=== PATIENT | female | born 1970 | race Caucasian/White ===

== ENCOUNTER 2023-01-20 06:29 | Inpatient (IN) ==
[2023-01-18 18:49] LABS: Partial Thromboplastin Time 26.7 sec (20.0-37.0)
[2023-01-18 18:50] LABS: ALT/SGPT 20 U/L (<40); AST/SGOT 29 U/L (<32); Albumin 4.1 gm/dL (3.2-5.2); Albumin/Globulin Ratio 1.6 (1.0-2.3); Alkaline Phosphatase 56 U/L (39-117); Bilirubin,Total 0.3 mg/dL (0.1-1.0); Blood Urea Nitrogen 6 mg/dL (6-20); Calcium 8.8 mg/dL (8.6-10.4); Carbon Dioxide 28 mmol/L (22-30); Chloride 104 mmol/L (96-108); Globulin 2.5 gm/dL (2.2-3.7); Glomerular Filtration Rate 85; Glucose 74 mg/dL (70-105); INR 0.9 (0.9-1.1); Prothrombin Time 12.2 sec (11.9-14.5)
[2023-01-18 18:52] LABS: Basophils # (Auto) 0.05 K/mcL (0.00-0.30); Basophils % (Auto) 1.2 % (0.0-2.0); Eosinophils # (Auto) 0.05 K/mcL (0.00-0.70); Eosinophils % (Auto) 1.2 % (0.0-7.0); Hematocrit 37.6 % (34.1-44.9); Hemoglobin 11.8 g/dL (11.2-15.7); Lymphocytes # (Auto) 1.46 K/mcL (1.50-4.80); Lymphocytes % (Auto) 34.8 % (15.5-49.0); Mean Corpuscular HGB Conc 31.4 g/dL (31.0-36.0); Mean Platelet Volume 9.6 fL (8.8-12.5); Monocytes # (Auto) 0.35 K/mcL (0.10-0.90); Monocytes % (Auto) 8.4 % (1.0-12.0); Neutrophils % (Auto) 54.2 % (38.0-78.0); Platelet Count 227 K/mcL (140-440); RBC 3.65 M/mcL (3.59-5.38); Red Cell Distribution Width 13.2 % (11.5-14.5); WBC 4.2 K/mcL (4.5-11.0)
[~2023-01-20 06:29] MED LIST: ceFAZolin 2 GM in DEXTROSE 5% IN WATER 50 ML IV SCH
[2023-01-20] MEDS ORDERED: ROPIVACAINE HCL/PF 20 ML VIAL IJ ONE (07:34)
[2023-01-20] MEDS ORDERED: PROPOFOL 200 MG/20 ML VIAL IV ONE (07:34)
[2023-01-20] MEDS ORDERED: ROCURONIUM 10 MG/ML ML IV ONE (07:34)
[2023-01-20] MEDS ORDERED: HYDROmorphone 1 MG/ML SYRINGE ONE (07:34)
[2023-01-20] MEDS ORDERED: DEXAMETHASONE 10 MG/ML VIAL ONE (07:34)
[2023-01-20] MEDS ORDERED: fentaNYL 100 MCG/2 ML VIAL IV ONE (07:34)
[2023-01-20] MEDS ORDERED: LIDOCAINE HCL/PF 100 MG/5 ML SYRINGE IV ONE (07:34)
[2023-01-20] MEDS ORDERED: MIDAZOLAM 5 MG/5 ML VIAL ONE (07:34)
[2023-01-20] MEDS ORDERED: SUGAMMADEX SODIUM 200 MG/2 ML VIAL IV ONE (07:34)
[2023-01-20] MEDS ORDERED: ONDANSETRON 4 MG/2 ML VIAL ONE (07:34)
[2023-01-20] MEDS ORDERED: ONDANSETRON 4 MG/2 ML VIAL IV PRN (10:49)
[2023-01-20] MEDS ORDERED: HYDROmorphone 0.5 MG/0.5 ML SYRINGE IV PRN ×2 (10:49→11:53)
[2023-01-20] MEDS ORDERED: NALOXONE HCL 0.4 MG/ML VIAL IV PRN (10:49)
[2023-01-20] MEDS ORDERED: PROMETHAZINE 25 MG/ML VIAL IV PRN (10:49)
[2023-01-20] MEDS ORDERED: MEPERIDINE 25 MG/ML VIAL IV PRN (10:49)
[2023-01-20] MEDS ORDERED: METHOCARBAMOL 1,000 MG/10 ML VIAL IV PRN (10:49)
[2023-01-20] MEDS ORDERED: fentaNYL 100 MCG/2 ML VIAL IV PRN (10:49)
[2023-01-20] MEDS ORDERED: LACTATED RINGERS 250 ML IV PRN (10:49)
[2023-01-20] MEDS ORDERED: IPRATROPIUM/ALBUTEROL 3 ML AMPUL.NEB NEB PRN (10:49)
[2023-01-20] MEDS: 0.9 % SODIUM CHLORIDE 10 ML SYRINGE IV SCH ×2 (13:33→23:13)
[2023-01-20] MEDS: 0.9 % SODIUM CHLORIDE 1,000 ML IV SCH ×2 (13:33→21:36)
[2023-01-20] MEDS: ONDANSETRON 4 MG/2 ML VIAL IV PRN (13:33)
[2023-01-20] MEDS ORDERED: HYDROmorphone 0.5 MG/0.5 ML SYRINGE IV ONE (14:54)
[2023-01-20] MEDS ORDERED: HYDROmorphone 0.5 MG/0.5 ML SYRINGE ONE (15:02)
[2023-01-20] MEDS ORDERED: PROMETHAZINE 25 MG/ML VIAL ONE (15:22)
[2023-01-20] MEDS: PROMETHAZINE 25 MG/ML VIAL IV PRN (15:28)
[2023-01-20] MEDS: ACETAMINOPHEN 1,000 MG/100 ML BAG IV SCH (15:33)
[2023-01-20] MEDS: HYDROmorphone 0.5 MG/0.5 ML SYRINGE IV PRN ×3 (16:32→21:58)
[2023-01-20] MEDS ORDERED: LORazepam 2 MG/ML VIAL IV ONE (17:17)
[2023-01-20] MEDS ORDERED: LORazepam 2 MG/ML VIAL ONE (17:24)
[2023-01-20] MEDS: fentaNYL 75 MCG PATCH TOPICAL SCH (20:13)
[2023-01-20] MEDS: ACETAMINOPHEN 650 MG SUPP.RECT PR PRN (20:15)
[2023-01-21] MEDS: HYDROmorphone 0.5 MG/0.5 ML SYRINGE IV PRN ×10 (00:15→23:50)
[2023-01-21] MEDS: ACETAMINOPHEN 1,000 MG/100 ML BAG IV SCH (01:50)
[2023-01-21] MEDS: ONDANSETRON 4 MG/2 ML VIAL IV PRN ×2 (05:47→15:11)
[2023-01-21] MEDS: METHOCARBAMOL 1,000 MG/10 ML VIAL IV PRN ×4 (05:47→22:19)
[2023-01-21] MEDS: 0.9 % SODIUM CHLORIDE 10 ML SYRINGE IV SCH ×3 (06:01→20:08)
[2023-01-21 06:45] LABS: Basophils # (Auto) 0.02 K/mcL (0.00-0.30); Basophils % (Auto) 0.2 % (0.0-2.0); Eosinophils # (Auto) 0.01 K/mcL (0.00-0.70); Eosinophils % (Auto) 0.1 % (0.0-7.0); Hematocrit 31.4 % (34.1-44.9); Hemoglobin 10.6 g/dL (11.2-15.7); Lymphocytes # (Auto) 1.14 K/mcL (1.50-4.80); Lymphocytes % (Auto) 9.8 % (15.5-49.0); Mean Cell Volume 98.1 fL (80.0-100.0); Mean Corpuscular HGB Conc 33.8 g/dL (31.0-36.0); Mean Platelet Volume 9.7 fL (8.8-12.5); Monocytes # (Auto) 0.65 K/mcL (0.10-0.90); Monocytes % (Auto) 5.6 % (1.0-12.0); Neutrophils % (Auto) 83.8 % (38.0-78.0); Platelet Count 192 K/mcL (140-440); Red Cell Distribution Width 13.5 % (11.5-14.5); WBC 11.6 K/mcL (4.5-11.0)
[2023-01-21 07:03] LABS: ALT/SGPT 41 U/L (<40); AST/SGOT 53 U/L (<32); Albumin 3.3 gm/dL (3.2-5.2); Albumin/Globulin Ratio 1.3 (1.0-2.3); Alkaline Phosphatase 54 U/L (39-117); Bilirubin,Direct < 0.2 mg/dL (0-0.3); Bilirubin,Total 0.5 mg/dL (0.1-1.0); Blood Urea Nitrogen 8 mg/dL (6-20); Calcium 7.8 mg/dL (8.6-10.4); Carbon Dioxide 21 mmol/L (22-30); Chloride 106 mmol/L (96-108); Globulin 2.5 gm/dL (2.2-3.7); Glomerular Filtration Rate 112; Glucose 126 mg/dL (70-105); Lactate Dehydrogenase 263 U/L (135-225); Phosphorous 1.3 mg/dL (2.5-4.5); Triglycerides 68 mg/dL (<150); Uric Acid 2.7 mg/dL (2.5-8.0)
[2023-01-21] MEDS: 0.9 % SODIUM CHLORIDE 1,000 ML IV SCH ×5 (07:29→23:42)
[2023-01-21] MEDS: PROMETHAZINE 25 MG/ML VIAL IV PRN ×2 (07:55→23:51)
[2023-01-21] MEDS ORDERED: LORazepam 2 MG/ML VIAL IV SCH (13:20)
[2023-01-21] MEDS ORDERED: METHOCARBAMOL 1,000 MG/10 ML VIAL IV SCH (13:30)
[2023-01-21] MEDS ORDERED: MAGNESIUM SULFATE 4 GM/100 ML BAG IV ONE (14:02)
[2023-01-21] MEDS: LORazepam 2 MG/ML VIAL IV PRN ×2 (15:12→19:41)
[2023-01-21] MEDS: POTASSIUM PHOSPHATE 40 MEQ in DEXTROSE 5% IN WATER 500 ML IV SCH ×2 (18:39→22:35)
[2023-01-22] MEDS: LORazepam 2 MG/ML VIAL IV PRN ×3 (02:01→18:37)
[2023-01-22] MEDS: HYDROmorphone 0.5 MG/0.5 ML SYRINGE IV PRN ×10 (02:02→23:10)
[2023-01-22] MEDS: METHOCARBAMOL 1,000 MG/10 ML VIAL IV PRN ×4 (04:10→20:59)
[2023-01-22] MEDS: 0.9 % SODIUM CHLORIDE 1,000 ML IV SCH ×4 (04:34→23:11)
[2023-01-22] MEDS: ACETAMINOPHEN 1,000 MG/100 ML BAG IV SCH ×2 (04:35→20:25)
[2023-01-22] MEDS: PROMETHAZINE 25 MG/ML VIAL IV PRN ×3 (05:59→23:10)
[2023-01-22] MEDS: 0.9 % SODIUM CHLORIDE 10 ML SYRINGE IV SCH ×3 (06:02→23:10)
[2023-01-22] MEDS ORDERED: LIDOCAINE PATCH TOPICAL ONE (13:56)
[2023-01-23] MEDS: LORazepam 2 MG/ML VIAL IV PRN ×4 (01:05→21:21)
[2023-01-23] MEDS: HYDROmorphone 0.5 MG/0.5 ML SYRINGE IV PRN ×8 (01:05→21:21)
[2023-01-23] MEDS: METHOCARBAMOL 1,000 MG/10 ML VIAL IV PRN ×3 (03:29→18:59)
[2023-01-23] MEDS: 0.9 % SODIUM CHLORIDE 1,000 ML IV SCH ×4 (05:17→21:21)
[2023-01-23] MEDS: 0.9 % SODIUM CHLORIDE 10 ML SYRINGE IV SCH ×2 (06:08→12:07)
[2023-01-23 06:40] LABS: Basophils # (Auto) 0.04 K/mcL (0.00-0.30); Basophils % (Auto) 0.6 % (0.0-2.0); Eosinophils # (Auto) 0.15 K/mcL (0.00-0.70); Eosinophils % (Auto) 2.2 % (0.0-7.0); Hematocrit 30.3 % (34.1-44.9); Hemoglobin 9.7 g/dL (11.2-15.7); Lymphocytes # (Auto) 0.79 K/mcL (1.50-4.80); Lymphocytes % (Auto) 11.8 % (15.5-49.0); Monocytes # (Auto) 0.46 K/mcL (0.10-0.90); Monocytes % (Auto) 6.9 % (1.0-12.0); Neutrophils % (Auto) 78.1 % (38.0-78.0); Platelet Count 159 K/mcL (140-440); RBC 2.97 M/mcL (3.59-5.38); Red Cell Distribution Width 13.8 % (11.5-14.5); WBC 6.7 K/mcL (4.5-11.0)
[2023-01-23 07:01] LABS: ALT/SGPT 23 U/L (<40); AST/SGOT 24 U/L (<32); Albumin 3.2 gm/dL (3.2-5.2); Albumin/Globulin Ratio 1.2 (1.0-2.3); Alkaline Phosphatase 53 U/L (39-117); Bilirubin,Direct < 0.2 mg/dL (0-0.3); Bilirubin,Total 0.5 mg/dL (0.1-1.0); Blood Urea Nitrogen 5 mg/dL (6-20); Calcium 6.9 mg/dL (8.6-10.4); Carbon Dioxide 17 mmol/L (22-30); Chloride 110 mmol/L (96-108); Globulin 2.6 gm/dL (2.2-3.7); Glomerular Filtration Rate 120; Glucose 73 mg/dL (70-105); Lactate Dehydrogenase 250 U/L (135-225); Phosphorous 1.2 mg/dL (2.5-4.5); Triglycerides 105 mg/dL (<150); Uric Acid 2.6 mg/dL (2.5-8.0)
[2023-01-23] MEDS: PROMETHAZINE 25 MG/ML VIAL IV PRN ×2 (07:39→17:21)
[2023-01-23] MEDS: LIDOCAINE PATCH TOPICAL SCH (09:43)
[2023-01-23] MEDS: POTASSIUM PHOSPHATE 40 MEQ in DEXTROSE 5% IN WATER 500 ML IV SCH ×2 (14:13→22:08)
[2023-01-23] MEDS: fentaNYL 75 MCG PATCH TOPICAL SCH (17:22)
[2023-01-23] MEDS: ACETAMINOPHEN 1,000 MG/100 ML BAG IV SCH (21:24)
[2023-01-24] MEDS: HYDROmorphone 0.5 MG/0.5 ML SYRINGE IV PRN ×9 (00:19→22:50)
[2023-01-24] MEDS: PROMETHAZINE 25 MG/ML VIAL IV PRN ×4 (00:19→15:28)
[2023-01-24] MEDS: 0.9 % SODIUM CHLORIDE 10 ML SYRINGE IV SCH ×4 (00:19→23:34)
[2023-01-24] MEDS: METHOCARBAMOL 1,000 MG/10 ML VIAL IV PRN ×3 (02:19→21:10)
[2023-01-24] MEDS: LORazepam 2 MG/ML VIAL IV PRN ×2 (04:23→22:51)
[2023-01-24] MEDS: 0.9 % SODIUM CHLORIDE 1,000 ML IV SCH ×3 (04:23→19:35)
[2023-01-24 06:50] LABS: Basophils # (Auto) 0.03 K/mcL (0.00-0.30); Basophils % (Auto) 0.6 % (0.0-2.0); Eosinophils # (Auto) 0.17 K/mcL (0.00-0.70); Eosinophils % (Auto) 3.6 % (0.0-7.0); Hematocrit 29.1 % (34.1-44.9); Hemoglobin 9.4 g/dL (11.2-15.7); Lymphocytes # (Auto) 0.85 K/mcL (1.50-4.80); Lymphocytes % (Auto) 18.2 % (15.5-49.0); Mean Corpuscular HGB Conc 32.3 g/dL (31.0-36.0); Mean Platelet Volume 9.6 fL (8.8-12.5); Monocytes # (Auto) 0.46 K/mcL (0.10-0.90); Monocytes % (Auto) 9.8 % (1.0-12.0); Neutrophils % (Auto) 67.4 % (38.0-78.0); Platelet Count 174 K/mcL (140-440); RBC 2.94 M/mcL (3.59-5.38); Red Cell Distribution Width 13.3 % (11.5-14.5); WBC 4.7 K/mcL (4.5-11.0)
[2023-01-24 07:07] LABS: ALT/SGPT 17 U/L (<40); AST/SGOT 18 U/L (<32); Albumin 3.2 gm/dL (3.2-5.2); Albumin/Globulin Ratio 1.1 (1.0-2.3); Alkaline Phosphatase 51 U/L (39-117); Bilirubin,Direct < 0.2 mg/dL (0-0.3); Bilirubin,Total 0.5 mg/dL (0.1-1.0); Blood Urea Nitrogen 4 mg/dL (6-20); Calcium 6.6 mg/dL (8.6-10.4); Carbon Dioxide 20 mmol/L (22-30); Chloride 108 mmol/L (96-108); Globulin 2.8 gm/dL (2.2-3.7); Glomerular Filtration Rate 112; Glucose 80 mg/dL (70-105); Lactate Dehydrogenase 249 U/L (135-225); Phosphorous 2.5 mg/dL (2.5-4.5); Triglycerides 115 mg/dL (<150); Uric Acid 3.2 mg/dL (2.5-8.0)
[2023-01-24] MEDS: LIDOCAINE PATCH TOPICAL SCH (11:19)
[2023-01-24] MEDS: ACETAMINOPHEN 1,000 MG/100 ML BAG IV SCH (22:51)
[2023-01-25] MEDS: PROMETHAZINE 25 MG/ML VIAL IV PRN ×4 (01:40→23:12)
[2023-01-25] MEDS: HYDROmorphone 0.5 MG/0.5 ML SYRINGE IV PRN ×6 (01:41→17:54)
[2023-01-25] MEDS: LORazepam 2 MG/ML VIAL IV PRN ×2 (04:03→23:21)
[2023-01-25] MEDS: 0.9 % SODIUM CHLORIDE 1,000 ML IV SCH ×3 (04:59→21:12)
[2023-01-25] MEDS: 0.9 % SODIUM CHLORIDE 10 ML SYRINGE IV SCH ×2 (05:14→14:43)
[2023-01-25 06:54] LABS: Basophils # (Auto) 0.05 K/mcL (0.00-0.30); Basophils % (Auto) 0.8 % (0.0-2.0); Eosinophils # (Auto) 0.16 K/mcL (0.00-0.70); Eosinophils % (Auto) 2.7 % (0.0-7.0); Hematocrit 31.3 % (34.1-44.9); Hemoglobin 9.7 g/dL (11.2-15.7); Lymphocytes # (Auto) 1.08 K/mcL (1.50-4.80); Lymphocytes % (Auto) 18.3 % (15.5-49.0); Mean Platelet Volume 9.6 fL (8.8-12.5); Monocytes # (Auto) 0.52 K/mcL (0.10-0.90); Monocytes % (Auto) 8.8 % (1.0-12.0); Neutrophils % (Auto) 69.2 % (38.0-78.0); Platelet Count 156 K/mcL (140-440); RBC 2.98 M/mcL (3.59-5.38); Red Cell Distribution Width 13.7 % (11.5-14.5); WBC 5.9 K/mcL (4.5-11.0)
[2023-01-25 07:15] LABS: ALT/SGPT 15 U/L (<40); AST/SGOT 18 U/L (<32); Albumin 3.3 gm/dL (3.2-5.2); Albumin/Globulin Ratio 1.2 (1.0-2.3); Alkaline Phosphatase 51 U/L (39-117); Bilirubin,Direct < 0.2 mg/dL (0-0.3); Bilirubin,Total 0.4 mg/dL (0.1-1.0); Blood Urea Nitrogen 2 mg/dL (6-20); Calcium 6.2 mg/dL (8.6-10.4); Carbon Dioxide 17 mmol/L (22-30); Chloride 108 mmol/L (96-108); Globulin 2.8 gm/dL (2.2-3.7); Glomerular Filtration Rate 112; Glucose 81 mg/dL (70-105); Lactate Dehydrogenase 256 U/L (135-225); Phosphorous 1.8 mg/dL (2.5-4.5); Triglycerides 125 mg/dL (<150); Uric Acid 3.7 mg/dL (2.5-8.0)
[2023-01-25] MEDS: METHOCARBAMOL 1,000 MG/10 ML VIAL IV PRN ×3 (10:08→23:36)
[2023-01-25] MEDS: LIDOCAINE PATCH TOPICAL SCH (10:10)
[2023-01-25 14:52] LABS: ALT/SGPT 16 U/L (<40); AST/SGOT 21 U/L (<32); Albumin 3.6 gm/dL (3.2-5.2); Albumin/Globulin Ratio 1.6 (1.0-2.3); Alkaline Phosphatase 55 U/L (39-117); Bilirubin,Direct < 0.2 mg/dL (0-0.3); Bilirubin,Total 0.4 mg/dL (0.1-1.0); Blood Urea Nitrogen 3 mg/dL (6-20); Calcium 6.6 mg/dL (8.6-10.4); Carbon Dioxide 16 mmol/L (22-30); Chloride 105 mmol/L (96-108); Globulin 2.3 gm/dL (2.2-3.7); Glomerular Filtration Rate 120; Glucose 65 mg/dL (70-105); Lactate Dehydrogenase 272 U/L (135-225); Phosphorous 1.5 mg/dL (2.5-4.5); Prealbumin 13.8 mg/dL (20.0-40.0); Triglycerides 104 mg/dL (<150)
[2023-01-25] MEDS: POTASSIUM PHOSPHATE 40 MEQ in DEXTROSE 5% IN WATER 500 ML IV SCH ×2 (14:56→21:55)
[2023-01-25] MEDS: ACETAMINOPHEN 1,000 MG/100 ML BAG IV SCH (21:07)
[2023-01-25] MEDS: CHLORHEXIDINE GLUCONATE 15 ML UDC SWABMOUTH SCH (21:12)
[2023-01-26] MEDS: HYDROmorphone 0.5 MG/0.5 ML SYRINGE IV PRN ×2 (00:05→20:04)
[2023-01-26] MEDS: 0.9 % SODIUM CHLORIDE 10 ML SYRINGE IV SCH ×4 (04:34→20:20)
[2023-01-26] MEDS: ONDANSETRON 4 MG/2 ML VIAL IV PRN (04:34)
[2023-01-26] MEDS: 0.9 % SODIUM CHLORIDE 1,000 ML IV SCH (04:40)
[2023-01-26] MEDS: ACETAMINOPHEN 650 MG SUPP.RECT PR PRN ×2 (07:13→14:17)
[2023-01-26 08:01] LABS: ALT/SGPT 14 U/L (<40); AST/SGOT 23 U/L (<32); Albumin 3.8 gm/dL (3.2-5.2); Albumin/Globulin Ratio 1.3 (1.0-2.3); Alkaline Phosphatase 59 U/L (39-117); Bilirubin,Direct < 0.2 mg/dL (0-0.3); Bilirubin,Total 0.5 mg/dL (0.1-1.0); Blood Urea Nitrogen 2 mg/dL (6-20); Calcium 7.1 mg/dL (8.6-10.4); Carbon Dioxide 18 mmol/L (22-30); Chloride 102 mmol/L (96-108); Globulin 2.9 gm/dL (2.2-3.7); Glomerular Filtration Rate 120; Glucose 112 mg/dL (70-105); Lactate Dehydrogenase 335 U/L (135-225); Phosphorous 2.4 mg/dL (2.5-4.5); Triglycerides 106 mg/dL (<150); Uric Acid 3.5 mg/dL (2.5-8.0)
[2023-01-26 08:27] LABS: Basophils # (Auto) 0.02 K/mcL (0.00-0.30); Basophils % (Auto) 0.3 % (0.0-2.0); Eosinophils # (Auto) 0.14 K/mcL (0.00-0.70); Eosinophils % (Auto) 1.9 % (0.0-7.0); Hematocrit 33.5 % (34.1-44.9); Hemoglobin 10.8 g/dL (11.2-15.7); Lymphocytes # (Auto) 0.63 K/mcL (1.50-4.80); Lymphocytes % (Auto) 8.8 % (15.5-49.0); Mean Cell Volume 101.5 fL (80.0-100.0); Mean Corpuscular HGB Conc 32.2 g/dL (31.0-36.0); Mean Platelet Volume 9.6 fL (8.8-12.5); Monocytes % (Auto) 9.7 % (1.0-12.0); Platelet Count 213 K/mcL (140-440); Red Cell Distribution Width 13.5 % (11.5-14.5); WBC 7.2 K/mcL (4.5-11.0)
[2023-01-26] MEDS ORDERED: SIMETHICONE 80 MG TAB.CHEW CHEWED SCH (09:31)
[2023-01-26] MEDS ORDERED: LORazepam 2 MG/ML VIAL ONE ×2 (10:47→11:03)
[2023-01-26] MEDS ORDERED: LORazepam 2 MG/ML VIAL IV STA (10:58)
[2023-01-26] MEDS ORDERED: LORazepam 2 MG/ML ORAL.SOL PO ONE (11:00)
[2023-01-26] MEDS ORDERED: LORazepam 2 MG/ML VIAL IV ONE (11:03)
[2023-01-26] MEDS ORDERED: MAGNESIUM SULFATE 2 GM/50 ML BAG IV SCH (11:04)
[2023-01-26] MEDS ORDERED: DIAZEPAM 10 MG/2 ML SYRINGE IV SCH (11:08)
[2023-01-26] MEDS ORDERED: levETIRAcetam 500 MG in 0.9 % SODIUM CHLORIDE 100 ML IV SCH (11:15)
[2023-01-26] MEDS ORDERED: LORazepam 2 MG/ML ORAL.SOL ONE (11:22)
[2023-01-26] MEDS: PROMETHAZINE 25 MG/ML VIAL IV PRN (11:23)
[2023-01-26] MEDS: CHLORHEXIDINE GLUCONATE 15 ML UDC SWABMOUTH SCH ×2 (11:52→20:19)
[2023-01-26] MEDS: PANTOPRAZOLE 40 MG VIAL IV SCH ×2 (14:50→14:52)
[2023-01-26] MEDS: LIDOCAINE PATCH TOPICAL SCH (16:19)
[2023-01-26] MEDS: fentaNYL 75 MCG PATCH TOPICAL SCH (17:38)
[2023-01-26] MEDS: LORazepam 2 MG/ML VIAL IV PRN (20:16)
[2023-01-26] MEDS: FLUTICASONE HFA 110MCG INHALER INH SCH (20:36)
[2023-01-26] MEDS: levETIRAcetam 500 MG in 0.9 % SODIUM CHLORIDE 100 ML IV SCH (20:43)
[2023-01-27] MEDS: 0.9 % SODIUM CHLORIDE 1,000 ML IV SCH ×4 (00:19→20:03)
[2023-01-27] MEDS: 0.9 % SODIUM CHLORIDE 10 ML SYRINGE IV SCH ×4 (05:11→23:40)
[2023-01-27] MEDS: HYDROmorphone 0.5 MG/0.5 ML SYRINGE IV PRN ×6 (05:52→23:37)
[2023-01-27] MEDS: ONDANSETRON 4 MG/2 ML VIAL IV PRN ×2 (06:50→20:11)
[2023-01-27 06:52] LABS: Basophils # (Auto) 0.03 K/mcL (0.00-0.30); Basophils % (Auto) 0.5 % (0.0-2.0); Eosinophils # (Auto) 0.11 K/mcL (0.00-0.70); Eosinophils % (Auto) 1.8 % (0.0-7.0); Hematocrit 28.9 % (34.1-44.9); Hemoglobin 9.5 g/dL (11.2-15.7); Lymphocytes # (Auto) 0.53 K/mcL (1.50-4.80); Lymphocytes % (Auto) 8.6 % (15.5-49.0); Mean Cell Volume 98.6 fL (80.0-100.0); Mean Corpuscular HGB Conc 32.9 g/dL (31.0-36.0); Mean Platelet Volume 9.8 fL (8.8-12.5); Monocytes # (Auto) 0.55 K/mcL (0.10-0.90); Monocytes % (Auto) 8.9 % (1.0-12.0); Neutrophils % (Auto) 79.7 % (38.0-78.0); Platelet Count 234 K/mcL (140-440); RBC 2.93 M/mcL (3.59-5.38); Red Cell Distribution Width 13.6 % (11.5-14.5); WBC 6.2 K/mcL (4.5-11.0)
[2023-01-27] MEDS: ACETAMINOPHEN 1,000 MG/100 ML BAG IV SCH (07:06)
[2023-01-27 07:15] LABS: ALT/SGPT 14 U/L (<40); AST/SGOT 17 U/L (<32); Albumin 3.5 gm/dL (3.2-5.2); Albumin/Globulin Ratio 1.3 (1.0-2.3); Alkaline Phosphatase 51 U/L (39-117); Bilirubin,Direct < 0.2 mg/dL (0-0.3); Bilirubin,Total 0.3 mg/dL (0.1-1.0); Blood Urea Nitrogen 3 mg/dL (6-20); Calcium 6.5 mg/dL (8.6-10.4); Carbon Dioxide 20 mmol/L (22-30); Chloride 106 mmol/L (96-108); Globulin 2.7 gm/dL (2.2-3.7); Glomerular Filtration Rate 120; Glucose 92 mg/dL (70-105); Lactate Dehydrogenase 301 U/L (135-225); Phosphorous 1.2 mg/dL (2.5-4.5); Triglycerides 87 mg/dL (<150); Uric Acid 4.2 mg/dL (2.5-8.0)
[2023-01-27] MEDS: ALBUTEROL SULFATE 60 PUFF INHALER INH PRN (10:22)
[2023-01-27] MEDS: PANTOPRAZOLE 40 MG VIAL IV SCH (10:22)
[2023-01-27] MEDS: METHOCARBAMOL 1,000 MG/10 ML VIAL IV PRN (10:22)
[2023-01-27] MEDS: levETIRAcetam 500 MG in 0.9 % SODIUM CHLORIDE 100 ML IV SCH ×2 (10:23→22:17)
[2023-01-27] MEDS: FLUTICASONE HFA 110MCG INHALER INH SCH ×2 (10:56→22:17)
[2023-01-27] MEDS: LIDOCAINE PATCH TOPICAL SCH ×2 (10:56→17:11)
[2023-01-27] MEDS ORDERED: tiZANidine 4 MG TABLET PO PRN (11:17)
[2023-01-27] MEDS ORDERED: BACLOFEN 10 MG TABLET PO PRN (11:45)
[2023-01-27] MEDS: CHLORHEXIDINE GLUCONATE 15 ML UDC SWABMOUTH SCH ×3 (13:00→22:16)
[2023-01-27] MEDS: LORazepam 2 MG/ML VIAL IV PRN ×2 (13:25→20:04)
[2023-01-27] MEDS: PROMETHAZINE 25 MG/ML VIAL IV PRN ×2 (13:25→23:06)
[2023-01-27] MEDS: PRAMIPEXOLE 0.25 MG TABLET PO SCH (22:14)
[2023-01-27] MEDS: VENLAFAXINE 75 MG TABLET PO SCH (22:14)
[2023-01-27] MEDS: PROPRANOLOL PO SCH (22:21)
[2023-01-28] MEDS: 0.9 % SODIUM CHLORIDE 10 ML SYRINGE IV SCH ×4 (05:55→21:31)
[2023-01-28] MEDS: 0.9 % SODIUM CHLORIDE 1,000 ML IV SCH ×2 (05:56→05:57)
[2023-01-28] MEDS: HYDROmorphone 0.5 MG/0.5 ML SYRINGE IV PRN ×5 (06:10→21:18)
[2023-01-28 07:02] LABS: ALT/SGPT 14 U/L (<40); AST/SGOT 19 U/L (<32); Albumin 3.1 gm/dL (3.2-5.2); Albumin/Globulin Ratio 1.2 (1.0-2.3); Alkaline Phosphatase 46 U/L (39-117); Bilirubin,Direct < 0.2 mg/dL (0-0.3); Bilirubin,Total 0.3 mg/dL (0.1-1.0); Blood Urea Nitrogen 3 mg/dL (6-20); Calcium 6.1 mg/dL (8.6-10.4); Carbon Dioxide 23 mmol/L (22-30); Chloride 106 mmol/L (96-108); Globulin 2.5 gm/dL (2.2-3.7); Glomerular Filtration Rate 132; Glucose 91 mg/dL (70-105); Lactate Dehydrogenase 265 U/L (135-225); Phosphorous 1.3 mg/dL (2.5-4.5); Triglycerides 74 mg/dL (<150); Uric Acid 3.6 mg/dL (2.5-8.0)
[2023-01-28] MEDS: ACETAMINOPHEN 1,000 MG/100 ML BAG IV SCH (07:53)
[2023-01-28] MEDS: ONDANSETRON 4 MG/2 ML VIAL IV PRN ×2 (07:54→21:17)
[2023-01-28] MEDS: LORazepam 2 MG/ML VIAL IV PRN ×2 (09:41→13:03)
[2023-01-28] MEDS: PANTOPRAZOLE 40 MG VIAL IV SCH (09:42)
[2023-01-28] MEDS: ALBUTEROL SULFATE 60 PUFF INHALER INH PRN (09:43)
[2023-01-28] MEDS: levETIRAcetam 500 MG in 0.9 % SODIUM CHLORIDE 100 ML IV SCH ×2 (09:43→21:29)
[2023-01-28] MEDS: CHLORHEXIDINE GLUCONATE 15 ML UDC SWABMOUTH SCH ×2 (09:56→21:23)
[2023-01-28] MEDS: FLUTICASONE HFA 110MCG INHALER INH SCH ×2 (11:36→21:29)
[2023-01-28] MEDS: VENLAFAXINE 75 MG TABLET PO SCH ×2 (12:37→21:20)
[2023-01-28] MEDS: PRAMIPEXOLE 0.25 MG TABLET PO SCH ×2 (12:37→21:20)
[2023-01-28] MEDS: PROPRANOLOL PO SCH ×2 (12:38→21:26)
[2023-01-28] MEDS: LIDOCAINE PATCH TOPICAL SCH (17:39)
[2023-01-28] MEDS: GABAPENTIN 250 MG/5 ML PO SCH ×2 (17:39→21:30)
[2023-01-28] MEDS: XIIDRA 5% OU SCH (21:47)
[2023-01-29] MEDS: ACETAMINOPHEN 1,000 MG/100 ML BAG IV SCH (00:27)
[2023-01-29] MEDS: 0.9 % SODIUM CHLORIDE 1,000 ML IV SCH ×4 (01:10→11:30)
[2023-01-29] MEDS: 0.9 % SODIUM CHLORIDE 10 ML SYRINGE IV SCH (04:31)
[2023-01-29] MEDS: CHLORHEXIDINE GLUCONATE 15 ML UDC SWABMOUTH SCH (09:20)
[2023-01-29] MEDS: PANTOPRAZOLE 40 MG VIAL IV SCH (09:21)
[2023-01-29] MEDS: VENLAFAXINE 75 MG TABLET PO SCH (09:21)
[2023-01-29] MEDS: PRAMIPEXOLE 0.25 MG TABLET PO SCH (09:21)
[2023-01-29] MEDS: GABAPENTIN 250 MG/5 ML PO SCH (09:22)
[2023-01-29] MEDS: PROPRANOLOL PO SCH (09:22)
[2023-01-29] MEDS: levETIRAcetam 500 MG in 0.9 % SODIUM CHLORIDE 100 ML IV SCH (09:32)
[2023-01-29] MEDS: FLUTICASONE HFA 110MCG INHALER INH SCH (09:33)
[2023-01-29] MEDS: XIIDRA 5% OU SCH (09:33)
== END 2023-01-29 15:20 | disposition home health service (06) | DRG 330 ==
LOC: SUR 06:29 → MEDSUR 13:11
PROVIDERS: ADMIT Family Medicine Adult Medicine; ATTEND Family Medicine Adult Medicine

== ENCOUNTER 2023-07-03 08:44 | Inpatient (IN) ==
[2023-07-03] MEDS ORDERED: DIATRIZOATE MEGLU/DIATRIZO SOD 120ML BOTTLE PO ONE (08:45)
[2023-07-03] MEDS ORDERED: IOPAMIDOL 100 ML BOTTLE IV ONE (08:45)
[2023-07-03] MEDS: MIDAZOLAM 2 MG/2 ML VIAL IM ONE (09:58)
[2023-07-03] MEDS: KETOROLAC 60 MG/2 ML VIAL IM ONE (09:58)
[2023-07-03] MEDS: ACETAMINOPHEN 325 MG TABLET PO ONE (12:07)
[2023-07-03 12:53] LABS: Appearance,Urine Slightly Cloudy (Clear); Bacteria,Urine 0 /hpf (0); Bilirubin,Urine Negative (Negative); Calcium Oxalate Crystals,Urine Mod /hpf; Color,Urine Yellow; Culture Indicated,Urine No; Glucose,Urine (UA) Negative (Negative); Ketones,Urine Negative (Negative); Leukocyte Esterase,Urine Negative /uL (Negative); Nitrate,Urine Negative (Negative); PH,Urine 5.5 (5.0-9.0); Protein,Urine 30 mg/dL (Negative); Specific Gravity,Urine >= 1.030 (1.000-1.035); Urine Blood Negative ery/mcL (Negative); Urine RBC 0 /hpf (0-3); Urine Squamous Epithelial Cell 1 /hpf (0-4); Urine Transitional Epi Cells 1 /hpf (0-2); Urine WBC 4 /hpf (0-4); Urobilinogen,Urine Normal
[2023-07-03 13:53] LABS: Basophils # (Auto) 0.02 K/mcL (0.00-0.30); Basophils % (Auto) 0.2 % (0.0-2.0); Eosinophils # (Auto) 0.05 K/mcL (0.00-0.70); Eosinophils % (Auto) 0.5 % (0.0-7.0); Hematocrit 38.3 % (34.1-44.9); Hemoglobin 12.5 g/dL (11.2-15.7); Lymphocytes # (Auto) 1.87 K/mcL (1.50-4.80); Lymphocytes % (Auto) 19.9 % (15.5-49.0); Mean Cell Volume 100.3 fL (80.0-100.0); Mean Corpuscular HGB Conc 32.6 g/dL (31.0-36.0); Monocytes # (Auto) 0.64 K/mcL (0.10-0.90); Monocytes % (Auto) 6.8 % (1.0-12.0); Neutrophils % (Auto) 72.5 % (38.0-78.0); Platelet Count 221 K/mcL (140-440); RBC 3.82 M/mcL (3.59-5.38); Red Cell Distribution Width 13.2 % (11.5-14.5); WBC 9.4 K/mcL (4.5-11.0)
[2023-07-03 14:07] LABS: ALT/SGPT 14 U/L (<40); AST/SGOT 32 U/L (<32); Albumin 4.2 gm/dL (3.2-5.2); Albumin/Globulin Ratio 1.6 (1.0-2.3); Alkaline Phosphatase 58 U/L (39-117); Bilirubin,Total 0.5 mg/dL (0.1-1.0); Blood Urea Nitrogen 13 mg/dL (6-20); Calcium 9.3 mg/dL (8.6-10.4); Carbon Dioxide 24 mmol/L (22-30); Chloride 102 mmol/L (96-108); Globulin 2.7 gm/dL (2.2-3.7); Glomerular Filtration Rate 85; Glucose 100 mg/dL (70-105)
[2023-07-03] MEDS: 0.9 % SODIUM CHLORIDE 1,000 ML IV ONE (15:06)
[2023-07-03] MEDS: LACTATED RINGERS 1,000 ML IV SCH (16:52)
[2023-07-03] MEDS: fentaNYL 100 MCG/2 ML VIAL IV PRN (21:38)
[2023-07-03] MEDS: metroNIDAZOLE 500 MG/100 ML BAG IV SCH (21:39)
[2023-07-03] MEDS: VANCOMYCIN 125 MG CAPSULE PO SCH (21:39)
[2023-07-04 06:34] LABS: Basophils # (Auto) 0.01 K/mcL (0.00-0.30); Basophils % (Auto) 0.2 % (0.0-2.0); Eosinophils # (Auto) 0.03 K/mcL (0.00-0.70); Eosinophils % (Auto) 0.6 % (0.0-7.0); Hematocrit 37.2 % (34.1-44.9); Hemoglobin 12.2 g/dL (11.2-15.7); Lymphocytes # (Auto) 0.95 K/mcL (1.50-4.80); Lymphocytes % (Auto) 17.8 % (15.5-49.0); Mean Cell Volume 100.5 fL (80.0-100.0); Mean Corpuscular HGB Conc 32.8 g/dL (31.0-36.0); Mean Platelet Volume 9.1 fL (8.8-12.5); Monocytes # (Auto) 0.34 K/mcL (0.10-0.90); Monocytes % (Auto) 6.4 % (1.0-12.0); Neutrophils % (Auto) 74.8 % (38.0-78.0); Platelet Count 198 K/mcL (140-440); WBC 5.4 K/mcL (4.5-11.0)
[2023-07-04] MEDS: LORazepam 2 MG/ML VIAL IV ONE (08:47)
[2023-07-04] MEDS ORDERED: TRIAMCINOLONE CREAM 0.1% 15G 1 DOSE TUBE TOPICAL PRN (14:43)
[2023-07-04] MEDS ORDERED: ALBUTEROL SULFATE 60 PUFF INHALER INH PRN (14:43)
[2023-07-04] MEDS ORDERED: SILVER SULFADIAZINE CREAM.TOP 25GM TOPICAL PRN (14:43)
[2023-07-04] MEDS: VANCOMYCIN ORAL SOL 1,000 MG/10 ML BOTTLE PT SCH (16:11)
[2023-07-04] MEDS: ONDANSETRON 4 MG ODT TABLET SL SCH (16:11)
[2023-07-04] MEDS: LORazepam 1 MG TABLET PO PRN (16:57)
[2023-07-04] MEDS: VANCOMYCIN ORAL SOL 1,000 MG/10 ML BOTTLE PO SCH (17:09)
[2023-07-04] MEDS: tiZANidine 4 MG TABLET PO PRN (17:57)
[2023-07-04] MEDS: ACETAMINOPHEN 1,000 MG/100 ML BAG IV PRN (19:30)
[2023-07-04] MEDS: VENLAFAXINE 75 MG TABLET PO SCH (20:46)
[2023-07-04] MEDS: ZOLPIDEM 5 MG TABLET PO SCH (20:47)
[2023-07-04] MEDS: PROPRANOLOL PO SCH (20:49)
[2023-07-04] MEDS: LEVETIRACETAM 100 MG/ML PO SCH (20:49)
[2023-07-04] MEDS: FLUTICASONE HFA 110MCG INHALER INH SCH (20:51)
[2023-07-04] MEDS: BACLOFEN 10 MG TABLET PO PRN (23:03)
[2023-07-05] MEDS ORDERED: [UNRECOGNIZED DRUG - OTHER] PO SCH (09:00)
[2023-07-05] MEDS ORDERED: ENTERAL NUTRITION FORMULA PO SCH (09:00)
[2023-07-05] MEDS: POLYETHYLENE GLYCOL 3350 17 GM PACKET PO SCH (11:37)
[2023-07-05] MEDS: LIDOCAINE 4% TOP PATCH TOPICAL SCH (11:37)
[2023-07-05] MEDS: fentaNYL 50 MCG PATCH TOPICAL SCH (16:48)
[2023-07-06] MEDS: PROMETHAZINE 25 MG TABLET PO PRN (01:01)
[2023-07-08] MEDS ORDERED: PROPOFOL 200 MG/20 ML VIAL IV ONE (08:48)
[2023-07-08] MEDS ORDERED: LIDOCAINE 2% PF 5 ML VIAL ONE (08:48)
[2023-07-08] MEDS ORDERED: ROCURONIUM 10 MG/ML ML IV ONE (08:48)
[2023-07-08] MEDS ORDERED: ONDANSETRON 4 MG/2 ML VIAL ONE (08:48)
[2023-07-08] MEDS ORDERED: SUGAMMADEX SODIUM 200 MG/2 ML VIAL IV ONE (09:16)
[2023-07-08] MEDS ORDERED: LACTATED RINGERS 250 ML IV PRN (09:34)
[2023-07-08] MEDS ORDERED: diphenhydrAMINE 50 MG/ML VIAL IV PRN (09:34)
[2023-07-08] MEDS ORDERED: IPRATROPIUM/ALBUTEROL 3 ML AMPUL.NEB NEB PRN (09:34)
[2023-07-08] MEDS ORDERED: NALOXONE HCL 0.4 MG/ML VIAL IV PRN (09:34)
[2023-07-08] MEDS ORDERED: HYDROmorphone 0.5 MG/0.5 ML SYRINGE IV PRN (09:34)
[2023-07-08] MEDS ORDERED: ONDANSETRON 4 MG/2 ML VIAL IV PRN (09:34)
[2023-07-08] MEDS: IOVERSOL 20 ML VIAL IJ ONE ×2 (09:40→09:48)
[2023-07-08] MEDS: HYDROmorphone 1 MG/ML SYRINGE IV SCH (14:56)
[2023-07-08] MEDS: LACTATED RINGERS 1,000 ML IV SCH (16:43)
[2023-07-08] MEDS: DIAZEPAM 5 MG TABLET PO PRN (22:04)
[2023-07-09] MEDS: HYDROcodone/APAP 10/325MG TABLET PO PRN (09:49)
== END 2023-07-10 16:30 | disposition hospice, inpatient (51) | DRG 919 ==
LOC: MEDSUR 08:44 → ED 08:44 → MEDSUR 17:05
PROVIDERS: ADMIT Family Medicine Adult Medicine; ATTEND Family Medicine Adult Medicine

== ENCOUNTER 2024-03-13 03:42 | Inpatient (IN) ==
[2024-03-13] MEDS: ONDANSETRON 4 MG/2 ML VIAL IV ONE (04:06)
[2024-03-13] MEDS: HYDROmorphone 0.5 MG/0.5 ML SYRINGE IV PRN ×2 (04:07→09:20)
[2024-03-13 06:26] LABS: ALT/SGPT 11 U/L (<40); AST/SGOT 25 U/L (<32); Albumin/Globulin Ratio 1.5 (1.0-2.3); Alkaline Phosphatase 125 U/L (39-117); Bilirubin,Total < 0.2 mg/dL (0.1-1.0); Blood Urea Nitrogen 9 mg/dL (6-20); Calcium 9.2 mg/dL (8.6-10.4); Carbon Dioxide 32 mmol/L (22-30); Chloride 103 mmol/L (96-108); Globulin 2.6 gm/dL (2.2-3.7); Glomerular Filtration Rate 99; Glucose 72 mg/dL (70-105); Potassium 4.5 mmol/L (3.3-5.1); Sodium 141 mmol/L (133-145)
[2024-03-13 06:31] LABS: INR 0.9 (0.9-1.1); Prothrombin Time 12.3 sec (11.9-14.5)
[2024-03-13 06:46] LABS: Basophils # (Auto) 0.04 K/mcL (0.00-0.30); Basophils % (Auto) 0.9 % (0.0-2.0); Eosinophils % (Auto) 9.5 % (0.0-7.0); Hematocrit 36.9 % (34.1-44.9); Hemoglobin 11.4 g/dL (11.2-15.7); Lymphocytes # (Auto) 1.03 K/mcL (1.50-4.80); Lymphocytes % (Auto) 24.3 % (15.5-49.0); Mean Cell Volume 99.5 fL (80.0-100.0); Mean Corpuscular HGB Conc 30.9 g/dL (31.0-36.0); Mean Platelet Volume 9.6 fL (8.8-12.5); Monocytes # (Auto) 0.31 K/mcL (0.10-0.90); Monocytes % (Auto) 7.3 % (1.0-12.0); Neutrophils % (Auto) 57.8 % (38.0-78.0); Platelet Count 212 K/mcL (140-440); RBC 3.71 M/mcL (3.59-5.38); Red Cell Distribution Width 12.7 % (11.5-14.5); WBC 4.2 K/mcL (4.5-11.0)
[2024-03-13 07:07] LABS: Appearance,Urine Clear (Clear); Bilirubin,Urine Negative (Negative); Color,Urine Yellow; Glucose,Urine (UA) Negative (Negative); Ketones,Urine Negative (Negative); Leukocyte Esterase,Urine Negative /uL (Negative); Nitrate,Urine Negative (Negative); Protein,Urine Negative (Negative); Specific Gravity,Urine 1.015 (1.000-1.035); Urine Blood Negative ery/mcL (Negative); Urobilinogen,Urine Normal
[2024-03-13] MEDS: HYDROmorphone 0.5 MG/0.5 ML SYRINGE IV ONE (07:29)
[2024-03-13] MEDS: HYDROmorphone 1 MG/ML SYRINGE IV PRN (08:14)
[2024-03-13] MEDS ORDERED: MAGNESIUM SULFATE 2 GM/50 ML BAG IV PRN (09:05)
[2024-03-13] MEDS ORDERED: POTASSIUM CHLORIDE 20 MEQ TABLET PO PRN ×2 (09:05)
[2024-03-13] MEDS ORDERED: POTASSIUM CHLORIDE 40 MEQ in DEXTROSE 5% IN WATER 500 ML IV PRN (09:05)
[2024-03-13] MEDS ORDERED: POLYETHYLENE GLYCOL 3350 17 GM PACKET PO PRN (09:05)
[2024-03-13] MEDS ORDERED: IPRATROPIUM/ALBUTEROL 3 ML AMPUL.NEB NEB PRN ×3 (09:05→15:29)
[2024-03-13] MEDS ORDERED: ACETAMINOPHEN 325 MG TABLET PO PRN (09:05)
[2024-03-13] MEDS: ONDANSETRON 4 MG/2 ML VIAL IV PRN (09:20)
[2024-03-13] MEDS: DOCUSATE SODIUM 100 MG CAPSULE PO SCH (09:21)
[2024-03-13] MEDS: 0.9 % SODIUM CHLORIDE 10 ML SYRINGE IV SCH (09:21)
[2024-03-13] MEDS: 0.9 % SODIUM CHLORIDE 1,000 ML IV SCH (10:10)
[2024-03-13] MEDS: METHOCARBAMOL 1,000 MG/10 ML VIAL IV PRN ×2 (10:32→15:37)
[2024-03-13] MEDS ORDERED: GLYCOPYRROLATE 0.2 MG/ML VIAL IV ONE (12:52)
[2024-03-13] MEDS ORDERED: PHENYLephrine 1 MG/10 ML SYRINGE (ANEST) ONE ×2 (12:52→14:10)
[2024-03-13] MEDS ORDERED: PROPOFOL 200 MG/20 ML VIAL IV ONE (12:52)
[2024-03-13] MEDS ORDERED: ROCURONIUM 10 MG/ML ML IV ONE ×2 (12:52→12:58)
[2024-03-13] MEDS ORDERED: DEXAMETHASONE 10 MG/ML VIAL ONE (12:52)
[2024-03-13] MEDS ORDERED: LIDOCAINE 2% PF 5 ML VIAL ONE (12:52)
[2024-03-13] MEDS ORDERED: ONDANSETRON 4 MG/2 ML VIAL ONE (12:52)
[2024-03-13] MEDS ORDERED: MIDAZOLAM 2 MG/2 ML VIAL ONE (12:55)
[2024-03-13] MEDS ORDERED: fentaNYL 100 MCG/2 ML VIAL ONE (12:56)
[2024-03-13] MEDS ORDERED: KETAMINE 50 MG/ML Syringe IV ONE ×2 (12:56→14:30)
[2024-03-13] MEDS ORDERED: MAGNESIUM SULFATE 2 GM/50 ML BAG IV ONE (12:57)
[2024-03-13] MEDS ORDERED: HYDROmorphone 0.5 MG/0.5 ML SYRINGE IV PRN (13:23)
[2024-03-13] MEDS ORDERED: FLUMAZENIL 0.1 MG/ML ML IV PRN (13:23)
[2024-03-13] MEDS ORDERED: LACTATED RINGERS 250 ML IV PRN (13:23)
[2024-03-13] MEDS ORDERED: NALOXONE HCL 0.4 MG/ML VIAL IV PRN (13:23)
[2024-03-13] MEDS ORDERED: BENZOCAINE/MENTHOL 1 LOZENGE PO PRN ×2 (13:23→14:46)
[2024-03-13] MEDS ORDERED: ONDANSETRON 4 MG/2 ML VIAL IV PRN ×2 (13:23→15:29)
[2024-03-13] MEDS ORDERED: KETOROLAC 30 MG/ML VIAL ONE (13:25)
[2024-03-13] MEDS: ceFAZolin 2 GM in DEXTROSE 5% IN WATER 50 ML IV SCH ×2 (13:38→16:05)
[2024-03-13] MEDS ORDERED: TRANEXAMIC ACID 1,000 MG/10 ML VIAL ONE (14:13)
[2024-03-13] MEDS ORDERED: BISACODYL 10 MG SUPP.RECT PR PRN (14:46)
[2024-03-13] MEDS ORDERED: morphine 4 MG/ML VIAL IV PRN (14:51)
[2024-03-13] MEDS ORDERED: SUGAMMADEX SODIUM 200 MG/2 ML VIAL IV ONE (14:53)
[2024-03-13] MEDS ORDERED: fentaNYL 100 MCG/2 ML VIAL IV PRN (15:29)
[2024-03-13] MEDS ORDERED: METOCLOPRAMIDE 10 MG/2 ML VIAL IV PRN (15:29)
[2024-03-13] MEDS: fentaNYL 100 MCG/2 ML VIAL IV PRN (15:30)
[2024-03-13] MEDS: KETOROLAC 15 MG/ML VIAL IV PRN (15:36)
[2024-03-13] MEDS: DIAZEPAM 10 MG/2 ML SYRINGE IV ONE (15:40)
[2024-03-13] MEDS: LACTATED RINGERS 1,000 ML IV SCH ×2 (16:05)
[2024-03-13] MEDS: fentaNYL 100 MCG/2 ML VIAL ONE (16:06)
[2024-03-13] MEDS ORDERED: tiZANidine 4 MG TABLET PO PRN (20:05)
[2024-03-13] MEDS ORDERED: LIDOCAINE 4% TOP PATCH TOPICAL PRN (20:05)
[2024-03-13] MEDS ORDERED: PROMETHAZINE 25 MG TABLET PO PRN (20:05)
[2024-03-13] MEDS: HYOSCYAMINE SULFATE 0.125 MG TABLET SL SCH (21:29)
[2024-03-13] MEDS: DIAZEPAM 5 MG TABLET PO SCH (21:29)
[2024-03-13] MEDS: PROPRANOLOL 40 MG TABLET PO SCH (21:29)
[2024-03-13] MEDS: levETIRAcetam 500 MG TABLET PO SCH (21:30)
[2024-03-13] MEDS: ZOLPIDEM 5 MG TABLET PO SCH (21:30)
[2024-03-13] MEDS: BACLOFEN 10 MG TABLET PO SCH (21:30)
[2024-03-13] MEDS: ASPIRIN 325 MG ENTERIC COATED TABLET PO SCH (21:30)
[2024-03-13] MEDS: OXYBUTYNIN CHLORIDE 5 MG TABLET PO SCH (21:30)
[2024-03-13] MEDS: GABAPENTIN 300 MG CAPSULE PO SCH (21:30)
[2024-03-13] MEDS: METHOCARBAMOL 500 MG TABLET PO SCH (21:31)
[2024-03-13] MEDS: ceFAZolin 1 GM VIAL IV SCH (21:41)
[2024-03-13] MEDS: VENLAFAXINE 100 MG PO SCH (22:57)
[2024-03-14 06:49] LABS: ALT/SGPT 6 U/L (<40); AST/SGOT 18 U/L (<32); Albumin 3.2 gm/dL (3.2-5.2); Albumin/Globulin Ratio 1.3 (1.0-2.3); Alkaline Phosphatase 106 U/L (39-117); Bilirubin,Direct < 0.2 mg/dL (0-0.3); Bilirubin,Total < 0.2 mg/dL (0.1-1.0); Blood Urea Nitrogen 8 mg/dL (6-20); Calcium 8.4 mg/dL (8.6-10.4); Carbon Dioxide 28 mmol/L (22-30); Chloride 105 mmol/L (96-108); Globulin 2.4 gm/dL (2.2-3.7); Glomerular Filtration Rate 99; Glucose 102 mg/dL (70-105); Lactate Dehydrogenase 194 U/L (135-225); Phosphorous 2.6 mg/dL (2.5-4.5); Potassium 4.6 mmol/L (3.3-5.1); Sodium 139 mmol/L (133-145); Triglycerides 95 mg/dL (<150)
[2024-03-14] MEDS ORDERED: [UNRECOGNIZED DRUG - OTHER] PO SCH (09:00)
[2024-03-14] MEDS ORDERED: ENTERAL NUTRITION FORMULA PO SCH (09:00)
[2024-03-14] MEDS: VENLAFAXINE 37.5 MG TABLET PO SCH (09:18)
[2024-03-14] MEDS: OMEPRAZOLE 20 MG CAPSULE PO SCH (09:18)
[2024-03-14] MEDS: oxyCODONE/APAP 5/325MG TABLET PO PRN (09:18)
[2024-03-14] MEDS: POLYETHYLENE GLYCOL 3350 17 GM PACKET PO SCH (09:19)
[2024-03-14] MEDS ORDERED: POTASSIUM CHLORIDE 20 MEQ TABLET PO PRN (11:25)
[2024-03-14] MEDS ORDERED: HYOSCYAMINE SULFATE 0.125 MG TABLET SL PRN (14:42)
[2024-03-14] MEDS: BACLOFEN 10 MG TABLET PO PRN (14:54)
[2024-03-14] MEDS: tiZANidine 4 MG TABLET PO SCH (15:47)
[2024-03-14] MEDS: DIAZEPAM 2 MG TABLET PO SCH (20:55)
[2024-03-15] MEDS: SENNOSIDES 1 TABLET PO PRN (10:06)
== END 2024-03-15 13:20 | DRG 480 ==
LOC: ED 03:42 → MEDSUR 08:58
PROVIDERS: ADMIT Internal Medicine; ATTEND Internal Medicine